=== PATIENT | male | born 1960 | race Native Hawaiian/Other Pacific Islander ===

== ENCOUNTER 2017-03-14 20:11 | Emergency (ER) | payer BC ==
[~2017-03-14] VITALS: Ht 175.3 cm; Wt 62.6 kg
[2017-03-14 21:29] LABS: PLATELET COUNT 232 K/uL (142-355)
[2017-03-14 21:33] LABS: SODIUM 137 mmol/L (136-145)
[2017-03-14 22:50] VITALS: BP 114/78; TEMP 98.7
== END 2017-03-14 22:50 | disposition home or self-care (01) ==
LOC: ED 20:11
PROVIDERS: Specialist
DX: F14.10 Cocaine abuse, uncomplicated (principal)
CPT/HCPCS: 36415; 80053; 80307; 80320; 80329; 85027; 99283; G0479